=== PATIENT | female | born 1975 | race Caucasian/White ===

== ENCOUNTER 2016-11-11 20:47 | Emergency (ER) | payer BC ==
--- NOTE | 2016-11-11 21:39 | UC ---
Complaint Female HPI - HPI Summary HPI Summary: 41 y/o female presents to the urgent care c/o of b/l ear pain with pressure and burning pain and frequency on urination for the past 3 days. Patient has been taken pyridium to alleviate urinary symptoms but it is not improving. Patient denies vaginal discharge, fever, SOB, N/V/D. - History Of Current Complaint Chief Complaint: UCGeneralIllness Stated Complaint: EAR PAIN,ST Time Seen by Provider: 11/11/16 20:59 Hx Obtained From: Patient Hx Last Menstrual Period: 11/01/16 ?: No Onset/Duration: Sudden Onset, Lasting Days, Still Present Timing: Intermittent Severity Initially: Moderate Severity Currently: Moderate Pain Intensity: 6 - ear pain Pain Scale Used: 0-10 Numeric Character: Burning - on urination and frequency Aggravating Factor(s): Urination Associated Signs And Symptoms: Negative: Fever, Back Pain, Vaginal Discharge - Risk Factors Ectopic Risk Factor: Negative Ovarian Torsion Risk Factor: Negative - Allergies/Home Medications Allergies/Adverse Reactions: Allergies Allergy/AdvReac Type Severity Reaction Status Date / Time Penicillins Allergy Rash Verified 11/11/16 20:58 Home Medications: Home Medications Phenazopyridine HCl [Azo Urinary Pain Relief] 95 mg PO 11/11/16 [History] [id number] [Nyquil Severe Cold/Flu 5-6.25-10-325 mg/15Ml] 1 liq PO 11/11/16 [History Confirmed 11/11/16] PMH/Surg Hx/FS Hx/Imm Hx Previously Healthy: Yes - Surgical History Surgical History: Yes Surgery Procedure, Year, and Place: d&c 2005 - Family History Known Family History: Positive: Hypertension, Diabetes, Other - lymphoma - Social History Lives: With Family Alcohol Use: Occasionally Substance Use Type: None Smoking Status (MU): Never Smoked Tobacco Review of Systems Constitutional: Negative Skin: Negative Eyes: Negative ENT: Ear Ache - B/L Respiratory: Negative Cardiovascular: Negative Gastrointestinal: Negative Genitourinary: Dysuria, Frequency Motor: Negative Neurovascular: Negative Musculoskeletal: Negative Neurological: Negative Psychological: Negative All Other Systems Reviewed And Are Negative: Yes Physical Exam Triage Information Reviewed: Yes Appearance: Well-Appearing, No Pain Distress, Well-Nourished, Thin Vital Signs: Initial Vital Signs Temp 98.8 F 11/11/16 21:01 Pulse 81 11/11/16 21:01 Resp 18 11/11/16 21:01 BP 155/96 11/11/16 21:01 Pulse Ox 97 11/11/16 21:01 Vital Signs Reviewed: Yes Eye Exam: Normal ENT: Positive: Hearing grossly normal, Pharynx normal, TMs normal, Other: - LF ear canal with erythema and tenerness on palpation. Negative: Nasal congestion Neck exam: Normal Neck: Positive: Supple, Nontender Respiratory Exam: Normal Respiratory: Positive: Chest non-tender, Lungs clear, Normal breath sounds Cardiovascular Exam: Normal Cardiovascular: Positive: RRR, No Murmur, Pulses Normal Abdominal Exam: Normal Abdomen Description: Positive: Nontender, No Organomegaly, Soft, Bruit. Negative: CVA Tenderness (R), CVA Tenderness (L) Bowel Sounds: Positive: Present Musculoskeletal Exam: Normal Musculoskeletal: Positive: Strength Intact Neurological Exam: Normal Psychological Exam: Normal Skin Exam: Normal Complaint Female Dx - Course Course Of Treatment: UTI: Patient with dysuria and frequency on urination taken pyridium with no symptom relief. UA unable to perform due to pyridium intake. Urne culture sent to the lab. Patient Rx with Bactrim 800/160 mg PO TID x 3 days prophylactically. External otitis: LF external ear canal with erythema and tenderness. Rx Acetic acid otic drops. Elevated Blood pressure: 155/96, second BP: 146/87. Pt advised to decrease salt intake and f/u with her PCP for furhter evaluation since there is FMHX of HTN. Pt understood and agreed. - Differential Dx/Diagnosis Differential Diagnosis/HQI/PQRI: Ureteral Stone - otitis media, URI, pharyngitis , Urinary Tract Infection Provider Diagnoses: Otitis externa. UTI. Elevated Blood pressure Discharge - Discharge Plan Condition: Stable Disposition: HOME Prescriptions: Acetic Acid (Otic) [Acetic Acid] 2 % OT TID #1 sina Sulfamethox/Trimethoprim DS* [Bactrim DS 800/160 TAB*] 1 tab PO BID #6 tab Patient Education Materials: Urinary Tract Infection in Women (ED), Otitis Externa (ED), Hypertension (ED) Referrals: Eunice Jain MD [Primary Care Provider] - Additional Instructions: Please take medication as directed to alleviate symptoms. If it worsens please f/u with your PCP or return to the urgent care for further treatment. Increase fluid intake.
[2016-11-11 21:41] VITALS: BP 146/87
== END 2016-11-11 22:01 | disposition home or self-care (01) ==
LOC: UCEAST 20:47
DX: H60.93 Unspecified otitis externa, bilateral (principal); N39.0 Urinary tract infection, site not specified; R03.0 Elevated blood-pressure reading, without diagnosis of hypertension; Z88.0 Allergy status to penicillin
CPT/HCPCS: 87086; 99212; G0463

== ENCOUNTER 2019-02-22 19:21 | Emergency (ER) | payer OTHER ==
[2019-02-22 19:41] VITALS: BP 134/101
== END 2019-02-22 20:13 | disposition left against medical advice (07) ==
LOC: UCEAST 19:21
DX: Z53.8 Procedure and treatment not carried out for other reasons (principal)